=== PATIENT | male | born 1990 | race Caucasian/White ===

== ENCOUNTER 2024-10-24 17:11 | Emergency (ER) | payer BC ==
[~2024-10-24] VITALS: Ht 182.9 cm; Wt 109.1 kg
[2024-10-24 17:25] VITALS: TEMP 98.1
[2024-10-24] MEDS ORDERED: AMOX-457 PO (18:10)
[2024-10-24] MEDS: PERTUSS(ACELL),DIPH,TET/PF 0.5 ML SYRINGE [ADULT] IM. ONE (18:12)
[2024-10-24 18:13] VITALS: BP 136/95; PULSE 101; RESP 18; O2SAT 98
[2024-10-24] MEDS: BACITRACIN 0.9 GM PACKET OINTMENT TP ONE (18:13)
[2024-10-24] MEDS: AMOX TR/POT CLAV 875 MG/125 MG TABLET PO ONE (18:22)
== END 2024-10-24 18:24 | disposition home or self-care (01) ==
LOC: EMS 17:13
DX: S81.851A Open bite, right lower leg, initial encounter (principal); Z88.8 Allergy status to other drugs, medicaments and biological substances; W54.0XXA Bitten by dog, initial encounter; Y93.89 Activity, other specified; Y92.89 Other specified places as the place of occurrence of the external cause; Y99.8 Other external cause status
CPT/HCPCS: 99283